=== PATIENT | female | born 1960 | race Two or more races ===

== ENCOUNTER 2016-09-07 16:24 | Emergency (ER) | payer MEDICAID, OTHER ==
[~2016-09-07] VITALS: Ht 147.3 cm; Wt 64.9 kg
[2016-09-07 17:00] LABS: BLOOD UREA NITROGEN 6 mg/dL (7-18)
[2016-09-07] MEDS ORDERED: SODIUM CHLORIDE FLUSH 10ML SYR IVF ONE (17:00)
[2016-09-07] MEDS ORDERED: SODIUM CHLORIDE 0.9% 1,000ML IVBOLUS ONE (17:00)
[2016-09-07] MEDS ORDERED: AMPICILLIN/SULBACTAM 3 GM in SODIUM CHLORIDE 0.9% 100 ML IVPB ONE (17:30)
[2016-09-07] MEDS ORDERED: DEXAMETHASONE 4 MG/ML, 1ML IVPush ONE (17:30)
[2016-09-07] MEDS ORDERED: DEXAMETHASONE 4 MG/ML, 1ML ONE (17:39)
[2016-09-07] MEDS ORDERED: OMEP10CA4 PO (18:15)
[2016-09-07] MEDS ORDERED: OMNIPAQUE 350 MG/ML, 100ML BOTTLE ONE (19:27)
[2016-09-07] MEDS ORDERED: BENZOCAINE 20% SPRAY 0.5ML ONE ×2 (19:57→19:58)
[2016-09-07] MEDS ORDERED: BENZOCAINE 20% SPRAY 0.5ML TP ONE (20:00)
[2016-09-07 20:31] VITALS: BP 143/80
[2016-09-07] MEDS ORDERED: HYDROcodone/APAP 5/325 TABLET ONE (20:33)
[2016-09-07] MEDS ORDERED: HYDROcodone/APAP 5/325 TABLET PO ONE (21:00)
== END 2016-09-07 21:04 | disposition home or self-care (01) ==
LOC: ED 20:40
DX: J36 Peritonsillar abscess (principal)
CPT/HCPCS: 10160; 36415; 70491; 80048; 82040; 85025; 96365; 96366; 96375; 99285; J0295; J1100; J7030; Q9967

== ENCOUNTER → 2018-07-15 | Outpatient (CLI) | payer OTHER ==
[~2018-07-15] MED LIST: OMEP10CA4 PO
[2018-07-15 09:17] LABS: ALBUMIN 3.7 g/dL (3.4-5.0); ANION GAP 4 mmol/L (5-15); CHLORIDE 112 mmol/L (98-107)
[2018-07-15 09:20] LABS: ALANINE AMINOTRANSFERASE 35 U/L (12-78); ALKALINE PHOSPHATASE 75 U/L (45-117); BILIRUBIN,TOTAL 0.4 mg/dL (0.2-1.0); CHOL/HDL RATIO 2.9; CHOLESTEROL, TOTAL 192 mg/dL (140-239); CREATININE 0.52 mg/dL (0.55-1.02); HDL CHOL % 35 % (28-40); HDL CHOLESTEROL (DIRECT) 67 mg/dL (40-60); LDL CHOLESTEROL,CALCULATED 103 mg/dL (54-169); LDL/HDL RATIO 1.5 (0.5-3.0); TOTAL PROTEIN 7.4 g/dL (6.4-8.2); TRIGLYCERIDES 109 mg/dL (50-200); VLDL CHOLESTEROL 22 mg/dL (0-25)
[2018-07-15 10:31] LABS: HEMOGLOBIN A1C 5.6 % (4.2-6.3)
== END | disposition home or self-care (01) ==
LOC: LAB 08:39
PROVIDERS: ATTEND Physician Assistant
DX: R73.09 Other abnormal glucose (principal); E78.2 Mixed hyperlipidemia
CPT/HCPCS: 36415; 80053; 80061; 83036